=== PATIENT | male | born 1980 | race American Indian/Alaskan Native ===

== ENCOUNTER 2019-08-18 10:42 | Emergency (ER) | payer OTHER, BC ==
[2019-08-18] MEDS ORDERED: Diphtheria,Pertussis(Acell),Tetanus Vaccine 0.5 ML SDV IM ONE (10:54)
[2019-08-18] MEDS ORDERED: Ketorolac 60 MG/2 ML SDV IM ONE (10:57)
--- NOTE | 2019-08-18 11:23 | EDM.PDOC ---
ED HPI GENERAL MEDICAL PROBLEM - General Chief Complaint: Laceration Stated Complaint: LACERATION Time Seen by Provider: 08/18/19 10:50 Source of Information: Reports: Patient History Limitations: Reports: No Limitations - History of Present Illness INITIAL COMMENTS - FREE TEXT/NARRATIVE: c/o finger lac pt at work trying to fit a pipe, has a lac of his L little finger pt says he had cut the threads on a pipe, had used his hand to wipe away the metal fragments, one apparently was still attached and sliced thru his glove and into his finger R handed pt from [place], family living in [place], pt member of [employer] has been here a month, says he has not moved his family up yet, staying in a motel - Related Data Allergies Allergy/AdvReac Type Severity Reaction Status Date / Time No Known Allergies Allergy Verified 08/18/19 10:52 Home Meds: Home Meds Amoxicillin/Clavulanate K [Augmentin 875-125 MG] 1 tab PO BID #10 tablet 08/18/19 [Rx] Social & Family History - Tobacco Use Smoking Status *Q: Current Every Day Smoker Years of Tobacco use: 20 Packs/Tins Daily: 1 - Caffeine Use Caffeine Use: Reports: Coffee - Recreational Drug Use Recreational Drug Use: Yes Recreational Drug Type: Reports: Marijuana/Hashish ED ROS GENERAL - Review of Systems Review Of Systems: See Below Constitutional: Reports: No Symptoms HEENT: Reports: No Symptoms Respiratory: Reports: No Symptoms Cardiovascular: Reports: No Symptoms Endocrine: Reports: No Symptoms GI/Abdominal: Reports: No Symptoms : Reports: No Symptoms Musculoskeletal: Reports: No Symptoms Skin: Reports: Wound Neurological: Reports: No Symptoms Psychiatric: Reports: No Symptoms Hematologic/Lymphatic: Reports: No Symptoms Immunologic: Reports: No Symptoms ED EXAM, SKIN/RASH Exam: See Below Exam Limited By: No Limitations General Appearance: Alert, WD/WN, No Apparent Distress Respiratory/Chest: No Respiratory Distress Cardiovascular: Regular Rate, Rhythm Extremities: Other (left fifth finger with deep horizontal lac, angulated, across mid middle phalange, angles toward DIP, no flex of DIP, dec'd sensation to light touch at the tip medially, no active bleeding, no visible f.b.) Course - Vital Signs Last Recorded V/S: Last Vital Signs Temp 36.6 C 08/18/19 10:43 Pulse 108 H 08/18/19 10:43 Resp 16 08/18/19 10:43 BP 163/110 H 08/18/19 10:43 Pulse Ox 99 08/18/19 10:43 - Orders/Labs/Meds Orders: Active Orders 24 hr Category Date Time Status Vaccines to be Administered [RC] PER UNIT ROUTINE Care 08/18/19 10:54 Active Meds: Medications Discontinued Medications Generic Name Dose Route Start Last Admin Trade Name Burton PRN Reason Stop Dose Admin Diphtheria/Tetanus/Acell Pertussis 0.5 ml 08/18/19 10:54 08/18/19 11:11 Adacel IM 08/18/19 10:55 0.5 ml .ONCE ONE Administration Ketorolac Tromethamine 60 mg 08/18/19 10:57 08/18/19 11:12 Toradol IM 08/18/19 10:58 60 mg ONETIME ONE Administration - Re-Assessments/Exams Free Text/Narrative Re-Assessment/Exam: 08/18/19 11:20 XR d/w Dr Cardenas radiologist, no definite fx altho lac is to bone d/w Dr Nunez, surgeon, who recommended referral to hand surgery [facility]w [facility] [place] with ED physician who said that their ortho who does some had work was gone for a week call placed to [facility], waiting a call back 08/18/19 12:57 d/w Dr Cuco Couch, ortho hand surgeon on-call at [facility]. He reviewed pt's XRs. Said that he could do the repair tomorrow (Sat) and that his office would call pt this afternoon to set up the appointment. Pt knows not to eat after midnight. pt states he served in [employer] and [employer] for 4 years skin closed, 1% lido local with #27 needle, cleaned x 12 with gauze and NS, no f.b. appreciated, closed with 3-0 Ethilon x 4, complete analgesia, dressing applied Departure - Departure Time of Disposition: 12:54 Disposition: Home, Self-Care 01 Condition: Good Clinical Impression: Laceration of left little finger with tendon involvement - Discharge Information *PRESCRIPTION DRUG MONITORING PROGRAM REVIEWED*: Not Applicable *COPY OF PRESCRIPTION DRUG MONITORING REPORT IN PATIENT MENDEL: Not Applicable Prescriptions: Amoxicillin/Clavulanate K [Augmentin 875-125 MG] 1 tab PO BID #10 tablet Instructions: Laceration Care, Adult, [id number] Forms: ED Department Discharge Additional Instructions: You will hear from the office of Dr Cuco Couch in [place] at the [facility]. If you have not heard from them by 3 PM, call the ED here at [phone]. Keep clean and dry and covered with a dressing. For pain, take ibuprofen 200 mg 4 tabs and acetaminophen 500 mg 2 tabs every 4 hours as needed. Sepsis Event Note (ED) - Evaluation Sepsis Screening Result: No Definite Risk - Focused Exam Vital Signs: Vital Signs Temp Pulse Resp BP Pulse Ox 08/18/19 10:43 36.6 C 108 H 16 163/110 H 99 - My Orders Last 24 Hours: My Active Orders 08/18/19 10:54 Vaccines to be Administered [RC] PER UNIT ROUTINE - Assessment/Plan Last 24 Hours: My Active Orders 08/18/19 10:54 Vaccines to be Administered [RC] PER UNIT ROUTINE
--- NOTE | 2019-08-18 11:44 | CR ---
INDICATION: Deep laceration, question bone involvement. LEFT 5TH FINGER: Three views of the left 5th finger revealed a laceration extending along the volar aspect of the middle phalanx obliquely. A fracture or dislocation was not identified. There may be some minimal foreign body in the portion of the laceration close to the bone. Separation of the lacerated tissue is noted. Report was given in person to Dr. Flannery at 1114 hours. [facility]
== END 2019-08-18 13:15 | disposition home or self-care (01) ==
LOC: FB.ED 10:42
DX: S56.128A Laceration of flexor muscle, fascia and tendon of left little finger at forearm level, initial encounter (principal); Z23 Encounter for immunization; F17.210 Nicotine dependence, cigarettes, uncomplicated; W26.9XXA Contact with unspecified sharp object(s), initial encounter
CPT/HCPCS: 12001; 73140-F4; 90471; 90715; 99283-25; J1885